=== PATIENT | male | born 1990 | race Caucasian/White ===

== ENCOUNTER 2019-04-07 19:44 | Emergency (ER) | payer SELFPAY ==
[~2019-04-07] VITALS: Ht 177.8 cm; Wt 70.5 kg
[~2019-04-07 19:44] MED LIST: ACID REFLUX MED; NIGHT-TIME COL300 ML; NO HOME MEDICATIONS; PROTONIX40 MG PO
[2019-04-07 19:56] VITALS: TEMP 99.5
[2019-04-07] MEDS ORDERED: AMOXICILLIN 8751 TAB PO (20:46)
[2019-04-07 21:54] VITALS: BP 116/73; PULSE 74
== END 2019-04-07 21:55 | disposition home or self-care (01) ==
LOC: COL.ER 19:44
DX: S71.151A Open bite, right thigh, initial encounter (principal); Z23 Encounter for immunization; W54.0XXA Bitten by dog, initial encounter; Y92.009 Unspecified place in unspecified non-institutional (private) residence as the place of occurrence of the external cause
CPT/HCPCS: 90375